=== PATIENT | male | born 1970 | race Caucasian/White ===

== ENCOUNTER → 2017-04-17 | Outpatient (CLI) | payer MEDICAID | END | disposition home or self-care (01) | LOC: OIH 09:02 | PROVIDERS: ATTEND Internal Medicine | DX: J18.0 Bronchopneumonia, unspecified organism (principal); I70.0 Atherosclerosis of aorta | CPT/HCPCS: 71046 ==

== ENCOUNTER → 2018-01-17 | Outpatient (CLI) | payer MEDICAID | END | disposition home or self-care (01) | LOC: OIH 09:41 | PROVIDERS: ATTEND Internal Medicine | DX: M47.897 Other spondylosis, lumbosacral region (principal); M48.07 Spinal stenosis, lumbosacral region; M25.561 Pain in right knee; M25.562 Pain in left knee | CPT/HCPCS: 72100; 73560 ==

== ENCOUNTER 2018-02-07 14:18 | Emergency (ER) | payer MEDICAID ==
[2018-02-07 14:45] LABS: BASOPHILS % (AUTO) 1.1 % (0.0-5.0); EOSINOPHILS % (AUTO) 2.1 % (0.0-8.0); HEMATOCRIT 49.7 % (42-54); LYMPHOCYTES % (AUTO) 17.7 % (21.0-51.0); MEAN CORPUSCULAR HGB CONC 33.3 g/dL (32.0-36.0); MONOCYTES % (AUTO) 5.6 % (3.0-13.0); NEUTROPHILS % (AUTO) 73.5 % (40.0-77.0); NUCLEATED RED BLOOD CELLS 0.1 % (0.0-0.19); PLATELET COUNT (AUTO) 211 K/uL (130-400); RED BLOOD CELL COUNT(AUTO) 5.91 MIL/uL (4.50-6.20); RED CELL DISTRIBUTION WIDTH 13.5 % (11.0-15.5); WHITE BLOOD COUNT (AUTO) 10.8 K/uL (4.8-10.8)
[2018-02-07 14:55] LABS: CREATININE 1.3 mg/dL (0.5-1.5); POTASSIUM 4.1 mmol/L (3.5-5.1)
[2018-02-07 15:00] LABS: ALBUMIN 4.3 g/dL (3.5-5.0); BILIRUBIN,TOTAL 0.5 mg/dL (0.2-1.0); TOTAL PROTEIN, SERUM 8.2 g/dL (6.0-8.3)
[2018-02-07] MEDS ORDERED: MORPHINE SULFATE 4 MG/1ML SYG ONE (15:03)
[2018-02-07] MEDS ORDERED: ONDANSETRON HCL 4 MG/2 ML VIAL ONE (15:04)
[2018-02-07 16:18] LABS: APPEARANCE,URINE Clear (CLEAR); BILIRUBIN,URINE Negative (NEGATIVE); COLOR,URINE Yellow (YELLOW); GLUCOSE, URINE (UA) Negative (NEGATIVE); KETONES,URINE Negative (NEGATIVE); LEUKOCYTE ESTERASE ,URINE Negative (NEGATIVE); NITRATE,URINE Negative (NEGATIVE); OCCULT BLOOD,URINE Negative (NEGATIVE); PROTEIN,URINE Negative (NEGATIVE)
[2018-02-07 16:26] LABS: AMPHET/METH SCREEN,URINE NEGATIVE (NEGATIVE); BARBITURATE SCREEN, URINE NEGATIVE (NEGATIVE); BENZODIAZEPINES SCREEN,URINE NEGATIVE (NEGATIVE); CANNABINOID SCREEN,URINE NEGATIVE (NEGATIVE); COCAINE SCREEN,URINE POSITIVE (NEGATIVE); OPIATE SCREEN,URINE NEGATIVE (NEGATIVE); PHENCYCLIDINE SCREEN,URINE NEGATIVE (NEGATIVE)
== END 2018-02-07 16:51 | disposition home or self-care (01) ==
LOC: EDH 14:18
DX: R10.30 Lower abdominal pain, unspecified (principal); R20.2 Paresthesia of skin; Z88.6 Allergy status to analgesic agent; Z72.0 Tobacco use
CPT/HCPCS: 36415; 80053; 80305; 81003; 83690; 84484; 85025; 93005; 93971; 96374; 96376; 99284; J2270; J2405

== ENCOUNTER 2018-03-04 08:51 | Emergency (ER) | payer MEDICAID ==
[2018-03-04] MEDS ORDERED: METHYLPREDNISOLONE SOD SUCC 125MG/2ML VIAL ONE (09:39)
[2018-03-04] MEDS ORDERED: ONDANSETRON ODT 4 MG TAB ONE (09:39)
[2018-03-04] MEDS ORDERED: MORPHINE SULFATE 8 MG/ML VIAL ONE (09:40)
[2018-03-04] MEDS ORDERED: DEXA4TAB PO (15:52)
[2018-03-04] MEDS ORDERED: VORT20TA PO (15:52)
[2018-03-04] MEDS ORDERED: AMLO5TAB7 PO (15:52)
[2018-03-04] MEDS ORDERED: CETI10TA86 PO (15:52)
[2018-03-04] MEDS ORDERED: PRAV40TA3 PO (15:52)
[2018-03-04] MEDS ORDERED: SPIR25TA6 PO (15:52)
[2018-03-04] MEDS ORDERED: FENT-77 TD (15:52)
[2018-03-04] MEDS ORDERED: OMEP40CA37 PO (15:52)
[2018-03-04] MEDS ORDERED: FLUT15.88 NS (15:52)
== END 2018-03-04 10:58 | disposition home or self-care (01) ==
LOC: EDH 08:51
DX: M54.30 Sciatica, unspecified side (principal); I10 Essential (primary) hypertension; J44.9 Chronic obstructive pulmonary disease, unspecified; F41.9 Anxiety disorder, unspecified; Z90.49 Acquired absence of other specified parts of digestive tract; Z72.0 Tobacco use
CPT/HCPCS: 96372 ×2; 99283; J2270; J2930

== ENCOUNTER → 2020-06-02 | Outpatient (CLI) | payer MEDICAID ==
[~2020-06-02] MED LIST: AMLO-257 PO; CETI10TA86 PO; FENT-77 TD; FLUT15.845 NS; OMEP40CA13 PO; PRAV40TA3 PO; SPIR25TA6 PO; VORT20TA PO
== END | disposition home or self-care (01) ==
LOC: OIH 09:36
PROVIDERS: ATTEND Internal Medicine
DX: J18.0 Bronchopneumonia, unspecified organism (principal)
CPT/HCPCS: 71046

== ENCOUNTER → 2024-01-07 | Outpatient (CLI) | payer OTHER ==
[~2024-01-07] MED LIST changes: -CETI10TA86 PO; +CETI10TA87 PO; -OMEP40CA13 PO; +OMEP40CA21 PO
== END | disposition home or self-care (01) ==
LOC: RAH 13:28
PROVIDERS: ATTEND Internal Medicine Cardiovascular Disease
DX: Z13.6 Encounter for screening for cardiovascular disorders (principal)
CPT/HCPCS: 75571